=== PATIENT | female | born 1975 | race American Indian/Alaskan Native ===

== ENCOUNTER 2017-05-22 13:37 | Outpatient (CLI) | payer BC ==
--- NOTE | 2017-05-22 14:24 | Mammography Report ---
BILATERAL DIGITAL DIAGNOSTIC MAMMOGRAM WITH CAD : 05/22/17 13:37:00 CLINICAL: Breast cancer survivor status post right partial mastectomy, radiation therapy and chemotherapy. COMPARISON:03/07/16 FINDINGS: The breasts are mostly fatty. Stable right upper outer postsurgical scar. No mass, suspicious architectural distortion or suspicious calcifications. IMPRESSION: No mammographic evidence of malignancy. BI-RADS CATEGORY: 2 -- Benign RECOMMENDATION: Routine mammographic screening in one year. COMMENT: Patient follow-up letters are generated via our [employer] application.
== END 2017-05-22 13:38 | disposition home or self-care (01) ==
LOC: SPVWC 13:37
PROVIDERS: ATTEND Radiology Radiation Oncology
DX: C50.411 Malignant neoplasm of upper-outer quadrant of right female breast (principal); Z90.11 Acquired absence of right breast and nipple
CPT/HCPCS: 77066; G0204

== ENCOUNTER 2019-01-20 08:59 | Outpatient (CLI) | payer BC ==
--- NOTE | 2019-01-20 11:01 | Mammography Report ---
BILATERAL DIGITAL DIAGNOSTIC MAMMOGRAM WITH CAD 01/20/2019 LEFT LIMITED BREAST ULTRASOUND INDICATION: Patient is palpating a lump in the superior left breast. Patient has history of right kyleigh ast carcinoma diagnosed and treated in 2013. TECHNIQUE: Digital bilateral mammographic imaging was performed. Spot compression views were obtaine d. Limited ultrasound was performed. This examination was interpreted with the benefit of Computer- ded Detection (CAD) analysis. COMPARISON: 05/13/2018 FINDINGS: Breast Density: The breasts are almost entirely fatty. There is no evidence of dominant mass, suspicious calcifications or architectural distortion in the r ight breast. Postlumpectomy and radiation changes are present on the right, stable in appearance. Spot compression imaging of the palpable area in the left breast does confirm the presence of a subtl e 8 mm round mass. The palpable mass is located at 12:00, 4.5 cm from the nipple. The remainder of th e left breast is normal. Ultrasound Findings: Targeted ultrasound evaluation was performed of the area of interest. There is a 6 x 5 mm round hypoechoic mass in the left breast at 12:00, 3 cm from the nipple, corresponding to the palpable lump as well as the mammographic mass. This mass has slightly irregular margins and ignacio l need to be further evaluated with percutaneous biopsy. IMPRESSION: Interval development of a 6 mm hypoechoic mass in the left breast at 12:00, corresponding to the patient's palpable lump. Recommend further evaluation with ultrasound-guided biopsy. The resu lts were discussed with the patient. BI-RADS Category 4: Suspicious for Malignancy. A "normal" or negative report should not discourage follow up or biopsy of a clinically significant f inding. A written summary of these findings will be mailed to the patient. The patient will be entered into a mammography reporting system which will generate a reminder letter for the patient's next appointmen t at the appropriate interval. FURTHER INFORMATION: According to the [employer], yearly mammograms are recommend ed starting at age 40 and continuing as long as a woman is in good health. Breast MRI is recommended for women with an approximately 20-25% or greater lifetime risk of breast cancer, including women wi th a strong family history of breast or ovarian cancer and women who have been treated for Hodgkin's disease. Signer Name: Deepthi Queen MD Signed: 01/20/2019 10:57 AM Workstation Name: [id number]
--- NOTE | 2019-01-20 11:04 | Ultrasound Report ---
LIMITED LEFT BREAST ULTRASOUND HISTORY: Patient has a new palpable lump in the left breast at 12:00. Patient has history of right br east malignancy, treated in 2014. COMPARISON: Bilateral mammogram performed today, 01/20/2018 FINDINGS: Focused sonographic evaluation upon the 12:00 location of the left breast demonstrates a 6 mm round hypoechoic mass with irregular margins. This corresponds to the palpable abnormality as well as a subtle mammographic mass. IMPRESSION 6 mm slightly irregular hypoechoic mass is noted in the left breast at 12:00, 3 cm from the nipple, c orresponding to the patient's palpable lump as well as the mammographic abnormality. Recommend furthe r evaluation with ultrasound-guided biopsy. BIRADS 4: Suspicious abnormality. Signer Name: Deepthi Queen MD Signed: 01/20/2019 11:00 AM Workstation Name: [id number]
== END 2019-01-20 09:00 | disposition home or self-care (01) ==
LOC: SPVWC 08:59
PROVIDERS: ATTEND Internal Medicine Hematology & Oncology
DX: N63.42 Unspecified lump in left breast, subareolar (principal); C50.411 Malignant neoplasm of upper-outer quadrant of right female breast; R25.2 Cramp and spasm
CPT/HCPCS: 77066

== ENCOUNTER 2019-02-03 13:02 | Outpatient (CLI) | payer BC ==
--- NOTE | 2019-02-03 14:58 | Ultrasound Report ---
ULTRASOUND-GUIDED VACUUM-ASSISTED NEEDLE CORE BIOPSY LEFT BREAST WITH CLIP PLACEMENT CLINICAL: A palpable 6 mm mass at 12:00 3 cm from the nipple. COMPARISON: 01/20/2019 FINDINGS: The procedure was explained to the patient and informed consent was obtained. Ultrasound demonstrated the previously identified lesion. I marked the breast with a felt tip marker and a timeout was called. The skin was prepped with Chloro -Prep and anesthetized with 1% lidocaine. Vacuum-assisted needle core biopsy was performed through tiny dermatotomy using ultrasound guidance, 2% lidocaine with epinephrine for deep anesthesia and a 13-gauge Mammotome Elite biopsy device. Multi ple cores were obtained and placed in formalin. And Ultramark clip was deployed at the biopsy site. A dditional samples were obtained closer to the nipple and a second clip (HydroMark) was placed. The patient tolerated the procedure well and there were no apparent complications. Hemostasis was ach ieved with minimal effort and a sterile dressing was applied. A post procedure mammogram demonstrated concordant clip deployment. She left the department in good c ondition and was given instructions for wound care and follow-up. IMPRESSION: Uncomplicated ultrasound guided needle core biopsy with clip placement left breast. Signer Name: Chip Rodriguez MD Signed: 02/03/2019 2:54 PM Workstation Name: [id number]
--- NOTE | 2019-02-03 15:53 | Mammography Report ---
LEFT DIGITAL DIAGNOSTIC CLINICAL: For clip placement after ultrasound-guided vacuum-assisted needle core biopsy. COMPARISON: 01/20/2019 FINDINGS: An ultra marker clip is identified at 1-2 o'clock and a HydroMark clip is identified at 12: 00. Both clips are approximately 3 to 4 cm from the nipple. An ultrasound lashell clip at 1-2 o'clock co rrelates with the initial samples and a HydroMark clip at 12:00 correlates with additional samples ta allen with the same probe. No mammographic lesion is identified on the lateral view. There is a persist ent slightly lateral subareolar asymmetry on the CC view. IMPRESSION: Concordant clip deployment. Signer Name: Chip Rodriguez MD Signed: 02/03/2019 3:48 PM Workstation Name: [id number]
== END 2019-02-03 13:03 | disposition home or self-care (01) ==
LOC: SPVWC 13:02
PROVIDERS: ATTEND Internal Medicine Hematology & Oncology
DX: N64.1 Fat necrosis of breast (principal); N63.22 Unspecified lump in the left breast, upper inner quadrant
CPT/HCPCS: 19083; 77065; 88305; A4648

== ENCOUNTER 2019-06-04 09:58 | Outpatient (CLI) | payer BC, OTHER ==
--- NOTE | 2019-06-07 08:26 | Mammography Report ---
DIGITAL SCREENING MAMMOGRAM WITH CAD, 06/04/2019 INDICATION: Routine screening mammography. Breast cancer survivor status post right partial mastectom y in 2014. Status post left benign ultrasound biopsy a 2118 with pathology consistent with benign fat necrosis. TECHNIQUE: Digital bilateral 2D mammography was obtained in the craniocaudal and mediolateral obliq ue projections. This examination was interpreted with the benefit of Computer-Aided Detection analysi s. COMPARISON: 05/13/2018 and 11/29/2015 FINDINGS: Breast Density: The breasts are almost entirely fatty. There is no evidence of dominant mass, suspicious calcifications or architectural distortion in eithe r breast. The right breast smaller than the left with stable upper outer benign postsurgical scar. Estrada rgical clips at the scar. 2 left upper biopsy clips. IMPRESSION: No mammographic evidence of malignancy. Follow up recommendation: Routine yearly BI-RADS Category 2: Benign. A "normal" or negative report should not discourage follow up or biopsy of a clinically significant f inding. A written summary of these findings will be mailed to the patient. The patient will be entered into a mammography reporting system which will generate a reminder letter for the patient's next appointmen t at the appropriate interval. The [employer] recommends yearly mammograms starting at age 40 and continuing as l broderick as a woman is in good health. Breast MRI is recommended for women with an approximate 20-25% or greater lifetime risk of breast cancer, including women with a strong family history of breast or ova jaya cancer or who have been treated for Hodgkin's disease. Signer Name: Chip Rodriguez MD Signed: 06/07/2019 8:21 AM Workstation Name: [id number]
== END 2019-06-04 09:59 | disposition home or self-care (01) ==
LOC: SPVWC 09:58
PROVIDERS: ATTEND Internal Medicine Hematology & Oncology
DX: Z12.31 Encounter for screening mammogram for malignant neoplasm of breast (principal)
CPT/HCPCS: 77067

== ENCOUNTER 2020-06-12 09:14 | Outpatient (CLI) | payer BC ==
--- NOTE | 2020-06-13 11:21 | Mammography Report ---
DIGITAL SCREENING MAMMOGRAM WITH CAD, 06/12/2020 CLINICAL INFORMATION / INDICATION: Routine screening mammography. SCREENING MAMMOGRAM TECHNIQUE: Digital bilateral 2D mammography was obtained in the craniocaudal and mediolateral obliqu e projections. This examination was interpreted with the benefit of Computer-Aided Detection analysis . COMPARISON: 06/05/2015 through 06/04/2019. FINDINGS: Breast Density: The breasts are almost entirely fatty. No dominant mass, suspicious calcifications, or architectural distortion in the left breast. There ar e 2 left biopsy clips. There are postlumpectomy and radiation changes in the right upper outer quadrant posteriorly. Surgica l clips are present in this region. No new abnormality or change from the prior study is seen. IMPRESSION: No mammographic evidence of malignancy. Follow up recommendation: Routine yearly BI-RADS Category 2: Benign. A "normal" or negative report should not discourage follow up or biopsy of a clinically significant f inding. A written summary of these findings will be mailed to the patient. The patient will be entered into a mammography reporting system which will generate a reminder letter for the patient's next appointmen t at the appropriate interval. The [employer] recommends yearly mammograms starting at age 40 and continuing as l broderick as a woman is in good health. Breast MRI is recommended for women with an approximate 20-25% or greater lifetime risk of breast cancer, including women with a strong family history of breast or ova jaya cancer or who have been treated for Hodgkin's disease. Signer Name: Raymundo Blackwood MD Signed: 06/13/2020 11:16 AM Workstation Name: [email or web address]
== END 2020-06-12 09:15 | disposition home or self-care (01) ==
LOC: SPVWC 09:14
PROVIDERS: ATTEND Internal Medicine Hematology & Oncology
DX: Z12.31 Encounter for screening mammogram for malignant neoplasm of breast (principal); C50.411 Malignant neoplasm of upper-outer quadrant of right female breast; R25.2 Cramp and spasm
CPT/HCPCS: 77067

== ENCOUNTER 2021-05-25 13:41 | Outpatient (CLI) | payer BC | END 2021-05-25 13:42 | disposition home or self-care (01) | LOC: SPVWC 13:41 | PROVIDERS: ATTEND Internal Medicine Hematology & Oncology | DX: Z12.31 Encounter for screening mammogram for malignant neoplasm of breast (principal) | CPT/HCPCS: 77067 ==